=== PATIENT | male | born 1990 | race Hispanic/Latino ===

== ENCOUNTER 2021-11-24 14:21 | Emergency (ER) | payer BC ==
[~2021-11-24] VITALS: Ht 172.7 cm; Wt 142.9 kg
[2021-11-24] MEDS ORDERED: ONDANSETRON HCL INJ 2MG/ML 2ML 2 MG/ML VIAL IV STA (15:12)
[2021-11-24] MEDS ORDERED: KETOROLAC TROMETHAMINE 30 MG/ML VIAL IV STA (15:12)
[2021-11-24] MEDS ORDERED: SODIUM CHLORIDE 0.9% 1000ML 1,000 ML IV SCH (15:15)
[2021-11-24 15:21] LABS: BASOPHILS % 0.6 % (0.0-1.0); EOSINOPHILS # (AUTO) 0.1 (0.0-0.4); EOSINOPHILS % 1.3 % (0.0-6.0); HEMATOCRIT 47.5 % (38.2-49.6); HEMOGLOBIN 15.9 g/dL (14.0-18.0); LYMPHOCYTES # (AUTO) 1.1 (1.0-3.2); LYMPHOCYTES % 14.9 % (18.0-39.1); MEAN CORPUSCULAR HEMOGLOBIN 28.4 pg (28-32); MEAN CORPUSCULAR HGB CONC 33.5 g/dL (31-35); MONOCYTES # (AUTO) 0.7 (0.2-0.8); NEUTROPHILS # (AUTO) 5.3 (2.1-6.9); NEUTROPHILS % 73.4 % (38.7-80.0); PLATELET COUNT 316 x10e3/uL (140-360); RED BLOOD COUNT 5.59 x10e6/uL (4.3-5.7); RED CELL DISTRIBUTION WIDTH 12.8 % (11.7-14.4)
[2021-11-24 15:32] LABS: COLOR,URINE AMBER (YELLOW)
[2021-11-24 15:33] LABS: CLARITY,URINE SL CLOUDY (CLEAR); KETONES,URINE NEGATIVE (NEGATIVE); LEUKOCYTE ESTERASE ,URINE NEGATIVE (NEGATIVE); NITRITE,URINE NEGATIVE (NEGATIVE); PROTEIN,URINE DIPSTICK 1+ (NEGATIVE); URINE UROBILINOGEN 0.2 mg/dL (0.2 - 1)
[2021-11-24 15:36] LABS: ALBUMIN 3.9 g/dL (3.5-5.0); ALBUMIN/GLOBULIN RATIO 0.9 (0.8-2.0); ANION GAP 11.8 mmol/L (8-16); CREATININE, SERUM 0.96 mg/dL (0.72-1.25); POTASSIUM 3.8 mmol/L (3.5-5.1)
[2021-11-24 15:45] LABS: RBC,URINE >50 /HPF (0-5)
[2021-11-24 15:46] LABS: BACTERIA,URINE FEW /HPF; EPITHELIAL CELLS,URINE FEW /LPF; MUCUS,URINE MANY (RARE)
[2021-11-24] MEDS ORDERED: IOPAMIDOL 370 MG/ML 100 ML INFUS..BTL INJ ONE (15:58)
[2021-11-24] MEDS ORDERED: FLOMAX0.4 MG PO (17:07)
[2021-11-24] MEDS ORDERED: NAPROXEN250 MG PO (17:07)
[2021-11-24] MEDS ORDERED: CEPHALEXIN500 MG PO (17:07)
[2021-11-24] MEDS ORDERED: ONDANSETRON ODT4 MG PO (17:07)
[2021-11-24] MEDS ORDERED: HYDROCODON-ACE1 EA11 PO (17:07)
== END 2021-11-24 18:15 | disposition home or self-care (01) ==
LOC: ER 14:25
DX: R10.9 Unspecified abdominal pain (principal); N13.2 Hydronephrosis with renal and ureteral calculous obstruction; R74.8 Abnormal levels of other serum enzymes
CPT/HCPCS: 36415; 74177; 80053; 81001; 83690; 85025; 99284; J1885; J2405; J7030; Q9967